=== PATIENT | male | born 1990 | race African-American/Black ===

== ENCOUNTER 2024-08-12 19:48 | Emergency (ER) | payer SELFPAY ==
[2024-08-12] MEDS: Amoxicillin 500 MG Cap PO ONE (20:54)
[2024-08-12] MEDS: Acetaminophen/HYDROcodone 325-5 MG Tab PO ONE (20:54)
== END 2024-08-12 22:05 | disposition home or self-care (01) ==
LOC: JD.ED 19:48
DX: S02.5XXB Fracture of tooth (traumatic), initial encounter for open fracture (principal); X10.1XXA Contact with hot food, initial encounter
CPT/HCPCS: 99282; A9270-GY